=== PATIENT | male | born 1940 | race Caucasian/White ===

== ENCOUNTER 2016-06-03 11:47 | Emergency (ER) | payer MEDICARE ==
--- NOTE | 2016-06-03 12:28 | EDPRACDOC ---
- General Information Chief Complaint: Abdominal Pain Stated Complaint: ABDOMINAL PAIN Time Seen by Provider: 06/03/16 12:22 Mode Of Arrival: Car Home Medications: Home Medications Acetaminophen [Tylenol] 650 mg PO Q4H PRN 06/03/16 Albuterol/Ipratropium Neb [Duoneb] 3 ml NEB Q6H PRN 06/03/16 Alprazolam [Xanax] 0.5 mg PO Q12H PRN 06/03/16 Amoxicillin 1gram Tab 1 grams PO TID 06/03/16 Ascorbic Acid 500 mg PO Q12H 06/03/16 Atenolol [Tenormin] 50 mg PO 0800 06/03/16 Atorvastatin Calcium [Lipitor] 10 mg PO HS 06/03/16 Azithromycin [Zithromax] 0 mg PO DAILY #6 tablet 06/03/16 Bisacodyl [Dulcolax] 10 mg MD .ONCE 06/03/16 Cholecalciferol (Vitamin D3) [Optimal D3] 50,000 unit PO .WEEKLY 06/03/16 Dabigatran Etexilate Mesylate [Pradaxa] 150 mg PO Q12H 06/03/16 Digoxin [Lanoxin, Digitek] 0.125 mg PO 0630 06/03/16 Docusate Sodium [Colace] 100 mg PO BID 06/03/16 Dofetilide [Tikosyn] 500 mcg PO Q12H 06/03/16 Famotidine [Pepcid] 20 mg PO Q12H 06/03/16 Finasteride [Proscar] 5 mg PO Q12H 06/03/16 Gabapentin [Neurontin] 300 mg PO Q8H 06/03/16 Insulin Aspart [Novolog] 0 units SQ .TID SSI BEFORE MEAL 06/03/16 Insulin Detemir [Levemir] 8 units SQ Q24H 06/03/16 LIDOCAINE 5% Patch [Lidoderm 5% Patch] 1 pat TOP 0700 06/03/16 Lactulose Encephalopathy 30 ml PO Q24H PRN 06/03/16 Levothyroxine Sodium [Synthroid] 175 mcg PO 0630 06/03/16 Lisinopril [Zestril] 2.5 mg PO 0800 06/03/16 Methadone HCl 5 mg PO Q8H 06/03/16 Metronidazole [Flagyl] 500 mg PO Q8H 06/03/16 Mineral Oil 133 ml RC .ONCE 06/03/16 Nitroglycerin [Nitrostat] 0.4 mg SL Q15M PRN 06/03/16 Ondansetron HCl [Zofran] 4 mg PO Q4H PRN 06/03/16 Oxycodone Immediate Release [Oxycodone Immediate Release (OxyIR)] 5 mg PO Q6H PRN 06/03/16 Prednisone [Deltasone, Orasone] 5 mg PO 0800 06/03/16 Saccharomyces Boulardii [Florastor] 250 mg PO Q12H 06/03/16 Sennosides [Senna] 8.6 mg PO BID 06/03/16 Tamsulosin HCl [Flomax] 0.4 mg PO 0800 06/03/16 Temazepam [Restoril] 15 mg PO HS PRN 06/03/16 Torsemide [Demadex] 5 mg PO 0800 06/03/16 Vancomycin HCl [Vancocin HCl] 125 mg PO Q6 #28 capsule 06/03/16 Allergies/Adverse Reactions: Allergies Allergy/AdvReac Type Severity Reaction Status Date / Time celecoxib [From Celebrex] Allergy Unknown Verified 06/03/16 13:25 Cephalosporins Allergy Unknown Verified 06/03/16 13:25 moxifloxacin Allergy Unknown Verified 06/03/16 13:25 nifedipine [From Adalat] Allergy Unknown Verified 06/03/16 13:25 pregabalin Allergy Unknown Verified 06/03/16 13:25 sulfamethoxazole Allergy Unknown Verified 06/03/16 13:25 [From Bactrim] trimethoprim Allergy Unknown Verified 06/03/16 13:25 - History of Present Illness Onset: 4 DAYS HPI: PT STATES DIFFUSE ABDOMINAL PAIN X 4 DAYS, NO BM FOR MORE THAN A WEEK, PT STATES THAT THE NURSE AT THE [facility] SENT HIM HERE "BECAUSE I NEED TO HAVE A BOWEL MOVEMENT". Pain Location: Reports: Diffuse Pain Context: Reports: Spontaneous Pain Severity: Mild Pain Quality: Reports: Cramping Pain Radiation: Reports: No Radiation Modifying Factors: improves with: Nothing Associated Signs & Symptoms: Denies: Nausea, Frequency, Hematuria, Vomiting, Hematemesis, Anorexia, Diarrhea, Melena, Dysuria, Fever, Urgency, Chills Oral Intake: Normal Urinary Output: Normal - Treatment Prior to ED Arrival Reported Medications/Treatment SETTER UP EMS Treatment BLS IV No ED Past Medical History - History Reviewed Yes Nurses notes reviewed and agree except as marked - Patient Medical History Cardiac History: Reports: Hypertension Respiratory History: Reports: COPD GI/ History: Reports: Gastroesophageal Reflux Psychological History: Reports: Depression Systemic History: Reports: Diabetes. Denies: Cancer - Social Medical History Smoking Status: Former smoker ETOH: None Substance Abuse: None EDM Review of Systems - Review of Systems Constitutional: negative: Chills, Fever Eyes: negative: Blurred Vision, Double Vision Ears: negative: Drainage Throat: negative: Pain Nose: negative: Congestion, Discharge Respiratory: negative: Cough, Shortness of Breath, Wheezing Cardiovascular: negative: Chest Pain, Palpitations Gastrointestinal: Constipation, Pain. negative: Diarrhea, Nausea, Vomiting Genitourinary: negative: Dysuria, Frequency Neurological: negative: Dizziness, Headache, Numbness, Weakness Musculoskeletal: No Symptoms Reported Integumentary: No Symptoms Reported - Physical Exam Constitutional: Alert (Awake), No apparent distress Oriented to: Time, Person, Place Last recorded Vital Signs: Last Vital Signs Temp 100.2 F 06/03/16 12:30 Pulse 67 06/03/16 14:29 Resp 18 06/03/16 14:29 BP 100/51 L 06/03/16 14:29 Pulse Ox 98 06/03/16 14:29 Oxygen Pulse Oxygen Saturation 98 O2 Device Nasal Cannula Oxygen Flow Rate 3 Fraction of Inspired Oxygen ( FIO2) - HEENT Head: Normal ( normocephalic) Eye Exam: Normal (PERRL, EOMI, Sclera white) Oropharynx: Normal (Pharynx:Moist without exudate,Gums-no swelling) Tympanic Membrane: Normal ENT EAC: Normal TMJ: Normal Nose: No Symptoms Reported (septum midline) Neck: Normal (FROM, trachea at midline) - Respiratory/Cardiovascular Respiratory: Normal - CTA (BBS clear to auscultation without adventitious sounds ) Cardiovascular: Normal (RRR without murmur, gallop or rub) - GI Auscultation: Normal (NABS) Palpation: Normal (Soft,No rebound or guarding, non distended) Tenderness: Diffuse, Mild. negative: Guarding, Rebound, Rigidity Shrestha's Sign: Negative - Musculoskeletal Back: Normal (Non-Tender) Extremities: Normal (Normal tone, Pulses 2+ No cyanosis or edema, FROM) - Integumentary Skin: Normal, Warm, Dry Lymphatics: Normal (no adenopathy) - Neurologic Memory Impaired: Normal Motor Function: Normal (Normal tone, Pulses 2+ No cyanosis or edema, FROM) Cranial Nerve: Normal (CN II-X11 intact sensation, strength 5/5) Cerebellar: Normal Mood Description: Normal Perception: Normal - Differential Diagnosis Bowel Obstruction, Constipation, Diverticulitis, IBS, Pneumonia, UTI - Re-evaluation Re-evaluation 1 Re-evaluation Time: 15:21 (FEELS BETTER, PT DENIES PREVIOUS HX OF C. DIFF, STATES HE HAD DIARRHEA LAST WEEK, DISCUSSED WITH DR PAUL, HE AGREES WITH PLAN TO TREAT OUTPATIENT) - Results 06/03/16 12:05 06/03/16 12:05 WBC 10.4 xk/uL (3.8-10.8) 06/03/16 12:05 RBC 3.01 xM/uL (4.70-6.10) L 06/03/16 12:05 Hgb 9.2 g/dL (14.0-18.0) L 06/03/16 12:05 Hct 27.9 % (42-52) L 06/03/16 12:05 MCV 93 fL (80-94) 06/03/16 12:05 MCH 30.6 pg (27-32) 06/03/16 12:05 MCHC 33.0 g/dl (33-36) 06/03/16 12:05 RDW 16.4 % (11.5-14.5) H 06/03/16 12:05 Plt Count 176 xk/uL (130-400) 06/03/16 12:05 MPV 8.8 fL (7.4-10.4) 06/03/16 12:05 Neut % (Auto) 83.8 % (45-76) H 06/03/16 12:05 Lymph % (Auto) 7.0 % (17-44) L 06/03/16 12:05 Dickson % (Auto) 8.2 % (3-10) 06/03/16 12:05 Eos % (Auto) 0.5 % (0-5) 06/03/16 12:05 Baso % (Auto) 0.5 % (0-2) 06/03/16 12:05 Absolute Neuts (auto) 8.63 xk/uL (1.7-8.2) H 06/03/16 12:05 Absolute Lymphs (auto) 0.73 xk/uL (0.65-4.75) 06/03/16 12:05 Sodium 135 mEq/L (137-146) L 06/03/16 12:05 Potassium 4.5 mEq/L (3.5-5.1) 06/03/16 12:05 Chloride 100 mEq/L (98-107) 06/03/16 12:05 Carbon Dioxide 28 mMOL/L (22-33) 06/03/16 12:05 Anion Gap 12 mEq/L (8-16) 06/03/16 12:05 BUN 23 MG/DL (9-20) H 06/03/16 12:05 Creatinine 0.90 MG/DL (0.66-1.25) 06/03/16 12:05 Estimated GFR (MDRD) > 60 mL/min (>=60) 06/03/16 12:05 Glucose 126 MG/DL (70-99) H 06/03/16 12:05 Calculated Osmolality 266 MOs/Kg (270-290) L 06/03/16 12:05 Calcium 8.8 MG/DL (8.4-10.2) 06/03/16 12:05 Corrected Calcium 9.7 MG/DL (8.4-10.2) 06/03/16 12:05 Total Bilirubin 0.6 MG/DL (0.2-1.3) 06/03/16 12:05 AST 17 IU/L (17-59) 06/03/16 12:05 ALT 20 IU/L (21-72) L 06/03/16 12:05 Alkaline Phosphatase 60 IU/L (50-160) 06/03/16 12:05 Total Protein 6.6 G/DL (6.3-8.2) 06/03/16 12:05 Albumin 3.1 G/DL (3.5-5.0) L 06/03/16 12:05 Urine Color Yellow 06/03/16 13:25 Urine Clarity Clear 06/03/16 13:25 Urine pH 6.0 (5.0-8.0) 06/03/16 13:25 Ur Specific Williams 1.010 (1.003-1.035) 06/03/16 13:25 Urine Protein 1+ (NEG/TRACE) H 06/03/16 13:25 Urine Glucose (UA) Neg (NEGATIVE) 06/03/16 13:25 Urine Ketones Neg (NEGATIVE) 06/03/16 13:25 Urine Occult Blood 1+ (NEG/TRACE) H 06/03/16 13:25 Urine Nitrite Neg (NEGATIVE) 06/03/16 13:25 Urine Bilirubin Neg (NEGATIVE) 06/03/16 13:25 Urine Urobilinogen <2.0 MG/DL (0-1) 06/03/16 13:25 Ur Leukocyte Esterase Trace (NEGATIVE) H 06/03/16 13:25 Urine RBC 5-10 (0-2) H 06/03/16 13:25 Urine WBC 2-5 (0-2) H 06/03/16 13:25 Urine Bacteria Few (NEG/FEW) 06/03/16 13:25 Hyaline Casts 5-10 (0-2) H 06/03/16 13:25 Urine Mucus Occ (NEG/OCC) 06/03/16 13:25 Microbiology 06/03/16 13:29 Stool Consistency (KATHARINA) - Final Stool Stool Mucus (KATHARINA) - Final Clostridium difficile (PCR) - Final * POSITIVE * This test may remain positive for several weeks even after the resolution of symptoms and completion of treatment. Therefore, repeat testing should NOT be requested within 7 days of the initial positive specimen, and then should be performed only in the setting of new onset diarrheal illness. Repeat assays should NOT be done to test for resolution of C. difficile infection. ([employer] C. difficile/Epi by PCR: Performance characteristics have not been established for patients <2 years of age - per vending machine technician limitations.) Clostridium difficile 027 (PCR) - Final PRESUMPTIVE NEGATIVE (For in vitro diagnostic use only. 027-NAP1-BI results are NOT intended to guide treatment of C. difficile infections. (Infection Control Hosp Epidemiol 2010;31:431-455)) 06/03/16 13:29 Campylobacter Antigen Assay - Final Stool NEGATIVE ("NORMAL" value = "NEGATIVE".) 06/03/16 13: Rotavirus Antigen - Final Stool NEGATIVE ("NORMAL" value = "NEGATIVE".) 06/03/16 13:29 Stool for WBCs - Final Stool Lab Results 06/03/16 06/03/16 06/03/16 13:25 12:05 12:05 WBC 10.4 RBC 3.01 L Hgb 9.2 L Hct 27.9 L MCV 93 MCH 30.6 MCHC 33.0 RDW 16.4 H Plt Count 176 MPV 8.8 Neut % (Auto) 83.8 H Lymph % (Auto) 7.0 L Dickson % (Auto) 8.2 Eos % (Auto) 0.5 Baso % (Auto) 0.5 Absolute Neuts (auto) 8.63 H Absolute Lymphs (auto) 0.73 Sodium 135 L Potassium 4.5 Chloride 100 Carbon Dioxide 28 Anion Gap 12 BUN 23 H Creatinine 0.90 Estimated GFR (MDRD) > 60 Glucose 126 H Calculated Osmolality 266 L Calcium 8.8 Corrected Calcium 9.7 Total Bilirubin 0.6 AST 17 ALT 20 L Alkaline Phosphatase 60 Total Protein 6.6 Albumin 3.1 L Urine Color Yellow Urine Clarity Clear Urine pH 6.0 Ur Specific Williams 1.010 Urine Protein 1+ H Urine Glucose (UA) Neg Urine Ketones Neg Urine Occult Blood 1+ H Urine Nitrite Neg Urine Bilirubin Neg Urine Urobilinogen <2.0 Ur Leukocyte Esterase Trace H Urine RBC 5-10 H Urine WBC 2-5 H Urine Bacteria Few Hyaline Casts 5-10 H Urine Mucus Occ - Diagnostic Imaging 1 VIEW ABDOMEN Image interpreted by: Radiologist 06/03/16 13:25 ABDOMEN - 1 VIEW COMPARISON: None. FINDINGS: There is diffuse stool throughout the colon. Rectum is mildly distended with stool. There are several loops of slightly dilated small bowel without air-fluid levels. No free air is seen on this supine examination. There are vascular calcifications in the pelvis. There is soft tissue fullness in the pelvis, likely due to urinary bladder distention. There is postoperative change in the proximal femur. IMPRESSION: Diffuse stool throughout colon. Question a degree of underlying ileus. No bowel obstruction. Soft tissue fullness in the pelvis is most likely due to urinary bladder distention. Conceivably, a soft tissue mass in the pelvis could present in this manner, although statistically, urinary bladder distention is more likely. Decision Time to Discharge: 15:21 - Departure Disposition: Home Condition: Stable Final Diagnosis: Healthcare-associated pneumonia, C. difficile colitis UTI (urinary tract infection) Qualifiers: Urinary tract infection type: site unspecified Instructions: Urinary Tract Infection in Men (ED), Clostridium Difficile Infection (ED) Education/Counseling Given To: Patient Education/Counseling Given Regarding: Diagnosis, Treatment, Prognosis, Follow Up Referrals: Denver Rose MD [Primary Care Provider] - One Week Prescriptions: Azithromycin [Zithromax] 0 mg PO DAILY #6 tablet Vancomycin HCl [Vancocin HCl] 125 mg PO Q6 #28 capsule Additional Instructions: REST, DRINK PLENTY OF FLUIDS, USE TYLENOL EVERY 4 HOURS AND MOTRIN EVERY 6 HOURS NEEDED FOR PAIN OR FEVER.
[2016-06-03 12:35] LABS: AUTOMATED BASOPHIL 0.5 % (0-2); AUTOMATED EOSINOPHIL 0.5 % (0-5); AUTOMATED MONOCYTE 8.2 % (3-10); AUTOMATED NEUTROPHIL 83.8 % (45-76); MPV 8.8 fL (7.4-10.4)
[2016-06-03 12:40] VITALS: BMI 30.7
[2016-06-03 12:42] LABS: BLOOD UREA NITROGEN 23 MG/DL (9-20); CALC CORRECTED 9.7 MG/DL (8.4-10.2); CALCIUM 8.8 MG/DL (8.4-10.2); CALCULATED OSMOLALITY 266 MOs/Kg (270-290); CHLORIDE 100 mEq/L (98-107); GLUCOSE 126 MG/DL (70-99); SODIUM LEVEL 135 mEq/L (137-146); TOTAL PROTEIN 6.6 G/DL (6.3-8.2)
--- NOTE | 2016-06-03 13:18 | DIRPT ---
CLINICAL DATA: Diffuse abdominal pain for 4 days. Constipation. EXAM: ABDOMEN - 1 VIEW COMPARISON: None. FINDINGS: There is diffuse stool throughout the colon. Rectum is mildly distended with stool. There are several loops of slightly dilated small bowel without air-fluid levels. No free air is seen on this supine examination. There are vascular calcifications in the pelvis. There is soft tissue fullness in the pelvis, likely due to urinary bladder distention. There is postoperative change in the proximal femur. IMPRESSION: Diffuse stool throughout colon. Question a degree of underlying ileus. No bowel obstruction. Soft tissue fullness in the pelvis is most likely due to urinary bladder distention. Conceivably, a soft tissue mass in the pelvis could present in this manner, although statistically, urinary bladder distention is more likely. Electronically Signed By: Sukumar Sims III, M.D. On: 06/03/2016 13:15
[2016-06-03] MEDS ORDERED: BUBBLE GUM ENEMA 480 ML ENEMA PR ONE (13:25)
--- NOTE | 2016-06-03 13:25 | DIRPT ---
CLINICAL DATA: Fever, diffuse abdominal pain for 4 days EXAM: CHEST 1 VIEW COMPARISON: None. FINDINGS: Borderline cardiomegaly. There is streaky atelectasis or infiltrate in right middle lobe. Mild bronchitic changes or bronchiectasis in right middle lobe. There is bilateral lower lobe reticular interstitial prominence. Although this may be interstitial fibrosis, pneumonitis or mild interstitial edema cannot be excluded. IMPRESSION: There is streaky atelectasis or infiltrate in right middle lobe. Mild bronchitic changes or bronchiectasis in right middle lobe. There is bilateral lower lobe reticular interstitial prominence. Although this may be interstitial fibrosis, pneumonitis or mild interstitial edema cannot be excluded. Electronically Signed By: Juan Antonio Freed M.D. On: 06/03/2016 13:23
[2016-06-03] MEDS ORDERED: IBUPROFEN 800 MG TAB PO ONE (13:28)
[2016-06-03] MEDS ORDERED: AZITHROMYCIN 500 MG in D5W 250 ML IV ONE (13:32)
[2016-06-03 13:59] LABS: LEUKOCYTES/URINE TRACE (NEGATIVE); NITRITE/URINE NEG (NEGATIVE); URINE OCCULT BLOOD 1+ (NEG/TRACE)
[2016-06-03 15:43] VITALS: TEMP 98.2
[2016-06-03 16:26] VITALS: BP 99/52; PULSE 56
== END 2016-06-03 16:20 ==
LOC: ED 11:47
DX: J18.9 Pneumonia, unspecified organism (principal); Y95 Nosocomial condition; A04.7 Enterocolitis due to Clostridium difficile
CPT/HCPCS: 36415; 71010; 74000; 80053; 81001; 83630; 85025; 87045; 87046; 87425; 87427; 87449; 87493; 96365; 99284; A9270; J0456; J7070; J3490